=== PATIENT | male | born 1990 | race African-American/Black ===

== ENCOUNTER 2018-02-10 10:12 | Emergency (ER) | payer OTHER ==
[~2018-02-10] VITALS: Ht 185.4 cm; Wt 77.1 kg
[2018-02-10 10:49] LABS: HEMATOCRIT 35.7 % (42.0-52.0); HEMOGLOBIN 12.1 gm/dL (14.0-18.0); MCH 31.3 pg (26.0-34.0); MCHC 33.8 g/dL (28.0-37.0); MCV 92.6 fL (80.0-100.0); PLATELET COUNT 265 thou/uL (150-400); RBC 3.86 mil/uL (4.50-6.00); RDW 12.6 % (10.5-14.5); WBC 16.8 thou/uL (4.0-11.0)
[2018-02-10 10:56] LABS: CALCIUM 9.1 mg/dL (8.5-10.1); CREATININE 1.5 mg/dL (0.7-1.3); POTASSIUM 3.7 mmol/L (3.5-5.1)
[2018-02-10 11:03] LABS: ALBUMIN 3.7 g/dL (3.4-5.0); TOTAL BILIRUBIN 0.6 mg/dL (<0.1-1.0); TOTAL PROTEIN 7.8 g/dL (6.4-8.2)
[2018-02-10 11:06] LABS: ABSOLUTE NEUTROPHILS 15.6 thou/uL (1.4-8.2); PLATELET ESTIMATE NORMAL
[2018-02-10 12:13] LABS: URINE BLOOD 1+ (Negative); URINE CLARITY CLEAR; URINE COLOR YELLOW; URINE GLUCOSE-RANDOM* NEGATIVE (Negative); URINE KETONES TRACE (Negative); URINE LEUKOCYTES NEGATIVE (Negative); URINE NITRITE NEGATIVE (Negative); URINE PROTEIN (DIPSTICK) NEGATIVE (Negative); URINE SPECIFIC GRAVITY 1.025 (1.005-1.035)
[2018-02-10 12:15] LABS: ICTOTEST (BILI CONFIRMATORY) Negative (Negative); URINE BILIRUBIN NEGATIVE (Negative)
[2018-02-10 12:45] LABS: SQUAMOUS None Seen /LPF (0-3)
[2018-02-10 12:46] LABS: CASTS None Seen /LPF (None Seen); CRYSTALS None Seen /LPF (None Seen); URINE WBC 0-5 Rare /HPF (0-5)
[2018-02-10 12:47] LABS: BACTERIA 1-9 Few /HPF (None Seen)
[2018-02-10 14:03] VITALS: BP 103/65
[2018-02-10] MEDS ORDERED: PHENERGAN 25 MG25 M1 PO (14:17)
[2018-02-10] MEDS ORDERED: IBUPROFEN 600600 M1 PO (14:17)
== END 2018-02-10 14:15 | disposition home or self-care (01) ==
LOC: ER 10:12
PROVIDERS: Physician Assistant
DX: B34.9 Viral infection, unspecified (principal); D72.829 Elevated white blood cell count, unspecified; J06.9 Acute upper respiratory infection, unspecified; M79.10 Myalgia, unspecified site; R11.2 Nausea with vomiting, unspecified; F17.210 Nicotine dependence, cigarettes, uncomplicated; Z87.442 Personal history of urinary calculi